=== PATIENT | male | born 1945 | race Caucasian/White ===

== ENCOUNTER 2017-12-13 10:20 | Day surgery (SDC) | payer MEDICARE ==
[2017-12-13] MEDS ORDERED: Depo-Medrol 40 MG/ML IM ONE (10:21)
[2017-12-13] MEDS ORDERED: DIPRIVAN 200 MG/20 ML IV ONE (10:21)
[2017-12-13] MEDS ORDERED: Xylocaine-Mpf 2% 5 Ml Vial IJ ONE (10:21)
[2017-12-13] MEDS ORDERED: Lactated Ringers 1,000 ML IV ONE (11:52)
--- NOTE | 2017-12-13 12:14 | XRAY ---
Indication: Bilateral L4-S1 MBB. Intraoperative fluoroscopy was provided for 10 seconds. 2 digital spot images submitted for interpretation demonstrates posterior spinal needle tips projecting over the expected course of the left and right L4-S1 nerve roots. Correlate with intraoperative findings/report.
--- NOTE | 2017-12-13 12:17 | XRAY ---
10 seconds fluoroscopy time in surgery for bilateral L4-S1 MBB.
== END 2017-12-13 11:35 | disposition home or self-care (01) ==
LOC: SDC-PAIN 10:20
PROVIDERS: ATTEND Psychiatry & Neurology Pain Medicine
DX: M47.816 Spondylosis without myelopathy or radiculopathy, lumbar region (principal)
CPT/HCPCS: 64493; 64494; 72020; 77003; 99100; J1030; J2704

== ENCOUNTER 2018-01-24 09:26 | Day surgery (SDC) | payer MEDICARE ==
[2018-01-24] MEDS ORDERED: Marcaine 0.5% SDV 10 ML IJ ONE ×2 (09:27)
[2018-01-24] MEDS ORDERED: Depo-Medrol 40 MG/ML IM ONE ×2 (09:27)
[2018-01-24] MEDS ORDERED: DIPRIVAN 200 MG/20 ML IV ONE (09:27)
--- NOTE | 2018-01-24 12:31 | XRAY ---
7 seconds of fluoroscopy was used in surgery for bilateral L4-S1 MBB.
--- NOTE | 2018-01-24 12:41 | XRAY ---
Indication: Bilateral L4-S1 MBB. Intraoperative fluoroscopy was provided for 7 seconds. Single digital spot image submitted for interpretation demonstrates posterior spinal needle tips projecting over the expected course of the left and right L4-S1 nerve roots. Correlate with intraoperative findings/report.
[2018-01-24] MEDS ORDERED: Lactated Ringers 1,000 ML IV ONE (14:46)
== END 2018-01-24 12:20 | disposition home or self-care (01) ==
LOC: SDC-PAIN 09:26
PROVIDERS: ATTEND Psychiatry & Neurology Pain Medicine
DX: M47.819 Spondylosis without myelopathy or radiculopathy, site unspecified (principal); Z79.899 Other long term (current) drug therapy
CPT/HCPCS: 64493; 64494; 72020; 77003; 99100; J1030; J2704

== ENCOUNTER 2018-03-14 09:30 | Day surgery (SDC) | payer MEDICARE ==
[2018-03-14] MEDS ORDERED: Xylocaine 1% Vial 30 ML PF IJ ONE (09:31)
[2018-03-14] MEDS ORDERED: Marcaine 0.5% SDV 10 ML IJ ONE (09:31)
[2018-03-14] MEDS ORDERED: DIPRIVAN 200 MG/20 ML IV ONE (09:31)
[2018-03-14] MEDS ORDERED: Depo-Medrol 40 MG/ML IM ONE (09:31)
[2018-03-14] MEDS ORDERED: ROBINUL IV ONE (09:31)
--- NOTE | 2018-03-14 14:36 | XRAY ---
Indication: Right L4-S1 RFA. Intraoperative fluoroscopy was provided for 38 seconds. 2 digital spot images submitted for interpretation demonstrates posterior spinal needle tips projecting over the expected course of the right L4-S1 nerve roots. Correlate with intraoperative findings/report.
--- NOTE | 2018-03-14 14:55 | XRAY ---
38 seconds fluoroscopy time in surgery for right L4-S1 RFA.
[2018-03-14] MEDS ORDERED: Lactated Ringers 2,000 ML IV ONE (14:59)
== END 2018-03-14 14:30 | disposition home or self-care (01) ==
LOC: SDC-PAIN 09:30
PROVIDERS: ATTEND Psychiatry & Neurology Pain Medicine
DX: M47.816 Spondylosis without myelopathy or radiculopathy, lumbar region (principal)
CPT/HCPCS: 64635; 64636; 72020; 77002; 99100; J1030; J2001; J2704

== ENCOUNTER 2018-04-11 08:33 | Day surgery (SDC) | payer MEDICARE ==
[2018-04-11] MEDS ORDERED: DIPRIVAN 200 MG/20 ML IV ONE (08:34)
[2018-04-11] MEDS ORDERED: Ketamine HCl 50 MG/ML IJ ONE (08:34)
[2018-04-11] MEDS ORDERED: Xylocaine 1% Vial 30 ML PF IJ ONE (08:34)
[2018-04-11] MEDS ORDERED: Depo-Medrol 40 MG/ML IM ONE (08:34)
[2018-04-11] MEDS ORDERED: Marcaine 0.5% SDV 10 ML IJ ONE (08:34)
[2018-04-11] MEDS ORDERED: Lactated Ringers 1,000 ML IV ONE (09:17)
--- NOTE | 2018-04-11 12:13 | XRAY ---
Indication: Left L4-S1 RFA. Intraoperative fluoroscopy was provided for 32 seconds. 3 digital spot images submitted for interpretation demonstrates posterior spinal needle tips projecting over the expected course of the left L4-S1 nerve roots. Correlate with intraoperative findings/report.
--- NOTE | 2018-04-11 12:16 | XRAY ---
32 seconds fluoroscopy time in surgery for L4-S1 RFA.
== END 2018-04-11 11:13 | disposition home or self-care (01) ==
LOC: SDC-PAIN 08:33
PROVIDERS: ATTEND Psychiatry & Neurology Pain Medicine
DX: M47.816 Spondylosis without myelopathy or radiculopathy, lumbar region (principal); Z79.899 Other long term (current) drug therapy
CPT/HCPCS: 64635; 64636; 72020; 77002; 99100; J1030; J2001; J2704

== ENCOUNTER 2018-12-26 14:14 | Day surgery (SDC) | payer MEDICARE ==
[2018-12-26] MEDS ORDERED: Xylocaine-Mpf 2% 5 Ml Vial IJ ONE (14:15)
[2018-12-26] MEDS ORDERED: Decadron 4 MG INJ IV ONE (14:15)
[2018-12-26] MEDS ORDERED: DIPRIVAN 200 MG/20 ML IV ONE (16:21)
[2018-12-26] MEDS ORDERED: Ketamine HCl 50 MG/ML ONE (16:21)
--- NOTE | 2018-12-26 17:05 | XRAY ---
Indication: Right C3-C6 MBB. Intraoperative fluoroscopy was provided for 39 seconds. 4 digital spot images submitted for interpretation demonstrates posterior needle tips projecting over the expected course of the right C3-C6 nerve roots. Correlate with intraoperative findings/report.
--- NOTE | 2018-12-26 17:05 | XRAY ---
39 seconds fluoroscopy time in surgery for right C3-C6 MBB.
[2018-12-26] MEDS ORDERED: Lactated Ringers 1,000 ML IV ONE (18:23)
== END 2018-12-26 17:02 | disposition home or self-care (01) ==
LOC: SDC-PAIN 14:14
PROVIDERS: ATTEND Psychiatry & Neurology Pain Medicine
DX: M47.813 Spondylosis without myelopathy or radiculopathy, cervicothoracic region (principal); M06.9 Rheumatoid arthritis, unspecified; Z79.899 Other long term (current) drug therapy; Z79.01 Long term (current) use of anticoagulants
CPT/HCPCS: 64490; 64491; 64492; 72020; 77002; J1100; J2704

== ENCOUNTER 2019-01-16 09:48 | Day surgery (SDC) | payer MEDICARE ==
[2019-01-16] MEDS ORDERED: Xylocaine-Mpf 2% 5 Ml Vial IJ ONE (09:49)
[2019-01-16] MEDS ORDERED: Decadron 4 MG INJ IV ONE (09:49)
[2019-01-16] MEDS ORDERED: ROBINUL IV ONE (09:49)
[2019-01-16] MEDS ORDERED: DIPRIVAN 200 MG/20 ML IV ONE (11:14)
[2019-01-16] MEDS ORDERED: Ketamine HCl 50 MG/ML ONE (11:14)
--- NOTE | 2019-01-16 12:21 | XRAY ---
27 seconds fluoroscopy time in surgery for left C3-C6 MBB.
--- NOTE | 2019-01-16 12:21 | XRAY ---
Indication: Left C3-C6 MBB. Intraoperative fluoroscopy was provided for 27 seconds. 3 digital spot images submitted for interpretation demonstrates posterior needle tips projecting over the expected course of the left C3-C6 nerve roots. Correlate with intraoperative findings/report.
[2019-01-16] MEDS ORDERED: Lactated Ringers 1,000 ML IV ONE (14:30)
== END 2019-01-16 12:08 | disposition home or self-care (01) ==
LOC: SDC-PAIN 09:48
PROVIDERS: ATTEND Psychiatry & Neurology Pain Medicine
DX: M47.812 Spondylosis without myelopathy or radiculopathy, cervical region (principal); M06.9 Rheumatoid arthritis, unspecified; Z79.899 Other long term (current) drug therapy; Z79.01 Long term (current) use of anticoagulants
CPT/HCPCS: 64490; 64491; 64492; 72020; 77002; J1100; J2704

== ENCOUNTER 2019-02-20 09:30 | Day surgery (SDC) | payer MEDICARE ==
[2019-02-20] MEDS ORDERED: Marcaine 0.5% SDV 10 ML IJ ONE (09:31)
[2019-02-20] MEDS ORDERED: Depo-Medrol 40 MG/ML IM ONE (09:31)
[2019-02-20] MEDS ORDERED: DIPRIVAN 200 MG/20 ML IV ONE (11:54)
[2019-02-20] MEDS ORDERED: Ketamine HCl 50 MG/ML ONE (11:55)
--- NOTE | 2019-02-20 12:59 | XRAY ---
Indication: Bilateral SI joint injection. Intraoperative fluoroscopy was provided for 10 seconds. 4 digital spot images submitted for interpretation demonstrates posterior needle tip projecting over the inferior left and right SI joints. Correlate with intraoperative findings/report.
--- NOTE | 2019-02-20 13:12 | XRAY ---
10 seconds of fluoroscopy was used in surgery for bilateral SI joint injection.
[2019-02-20] MEDS ORDERED: Lactated Ringers 1,000 ML IV ONE (15:55)
== END 2019-02-20 12:25 | disposition home or self-care (01) ==
LOC: SDC-PAIN 09:30
PROVIDERS: ATTEND Psychiatry & Neurology Pain Medicine
DX: M46.1 Sacroiliitis, not elsewhere classified (principal); M06.9 Rheumatoid arthritis, unspecified; Z79.899 Other long term (current) drug therapy; Z79.01 Long term (current) use of anticoagulants
CPT/HCPCS: 72202; 77002; G0260; 27096; 99100; J1030; J2704

== ENCOUNTER 2019-12-11 13:20 | Day surgery (SDC) | payer MEDICARE ==
[~2019-12-11 13:20] MED LIST: DIPRIVAN 200 MG/20 ML IV ONE; Ketamine HCl 50 MG/ML ONE
[2019-12-11] MEDS ORDERED: Depo-Medrol 40 MG/ML IM ONE (13:21)
[2019-12-11] MEDS ORDERED: BUPIVACAINE 0.5% VIAL IJ ONE (13:21)
--- NOTE | 2019-12-11 16:25 | XRAY ---
Indication: Bilateral SI joint injection. Intraoperative fluoroscopy was provided for 10 seconds. 4 digital spot images submitted for interpretation demonstrates posterior needle tip projecting over the inferior left and right SI joint. Correlate with intraoperative findings/report.
--- NOTE | 2019-12-11 16:29 | XRAY ---
10 seconds fluoroscopy time in surgery for bilateral SI joint injections.
[2019-12-11] MEDS ORDERED: Lactated Ringers 1,000 ML IV ONE (16:51)
== END 2019-12-11 16:05 | disposition home or self-care (01) ==
LOC: SDC-PAIN 13:20
PROVIDERS: ATTEND Psychiatry & Neurology Pain Medicine
DX: M46.1 Sacroiliitis, not elsewhere classified (principal); Z79.899 Other long term (current) drug therapy; M06.9 Rheumatoid arthritis, unspecified
CPT/HCPCS: 72202; 77002; G0260; 27096; 99100; J1030; J2704

== ENCOUNTER 2020-12-02 13:06 | Day surgery (SDC) | payer MEDICARE ==
[2020-12-02] MEDS ORDERED: Depo-Medrol 40 MG/ML IM ONE (13:07)
[2020-12-02] MEDS ORDERED: Xylocaine 1% Vial 30 ML PF IJ ONE (13:07)
[2020-12-02] MEDS ORDERED: BUPIVACAINE 0.5% VIAL IJ ONE (13:07)
[2020-12-02] MEDS ORDERED: DIPRIVAN 200 MG/20 ML IV ONE ×2 (14:37→14:48)
--- NOTE | 2020-12-02 15:24 | XRAY ---
Indication: Right L4-S1 RFA. Intraoperative fluoroscopy was provided for 29 seconds. 3 digital spot image submitted for interpretation demonstrates posterior needle tips projecting over the expected right L4-S1 nerve roots. Correlate with intraoperative findings/report.
--- NOTE | 2020-12-02 16:27 | XRAY ---
29 seconds of fluoroscopy was used in surgery for a right L4-S1 RFA.
[2020-12-02] MEDS ORDERED: Lactated Ringers 1,000 ML IV ONE (16:31)
== END 2020-12-02 15:10 | disposition home or self-care (01) ==
LOC: SDC-PAIN 13:06
PROVIDERS: ATTEND Psychiatry & Neurology Pain Medicine
DX: M47.816 Spondylosis without myelopathy or radiculopathy, lumbar region (principal); Z79.899 Other long term (current) drug therapy
CPT/HCPCS: 64635; 64636; 72100; 77002; 99100; J1030; J2001; J2704

== ENCOUNTER 2020-12-16 11:55 | Day surgery (SDC) | payer MEDICARE ==
[2020-12-16] MEDS ORDERED: Xylocaine 1% Vial 30 ML PF IJ ONE (11:56)
[2020-12-16] MEDS ORDERED: BUPIVACAINE 0.5% VIAL IJ ONE (11:56)
[2020-12-16] MEDS ORDERED: Depo-Medrol 40 MG/ML IM ONE (11:56)
[2020-12-16] MEDS ORDERED: DIPRIVAN 200 MG/20 ML IV ONE (14:09)
[2020-12-16] MEDS ORDERED: Lactated Ringers 1,000 ML IV ONE (14:27)
--- NOTE | 2020-12-16 15:00 | XRAY ---
Indication: Left L4-S1 RFA. Intraoperative fluoroscopy provided for 16 seconds. 3 digital spot images submitted for interpretation demonstrates posterior needle tips projecting over the expected left L4-S1 nerve roots. Correlate with intraoperative findings/report.
--- NOTE | 2020-12-16 15:18 | XRAY ---
16 seconds fluoroscopy time in surgery for left L4-S1 RFA.
== END 2020-12-16 14:40 | disposition home or self-care (01) ==
LOC: SDC-PAIN 11:55
PROVIDERS: ATTEND Psychiatry & Neurology Pain Medicine
DX: M47.816 Spondylosis without myelopathy or radiculopathy, lumbar region (principal); Z79.899 Other long term (current) drug therapy
CPT/HCPCS: 64635; 64636; 72100; 77002; 99100; J1030; J2001; J2704

== ENCOUNTER 2021-01-20 09:59 | Day surgery (SDC) | payer MEDICARE ==
[2021-01-20] MEDS ORDERED: Depo-Medrol 40 MG/ML IM ONE (10:00)
[2021-01-20] MEDS ORDERED: BUPIVACAINE 0.5% VIAL IJ ONE (10:00)
[2021-01-20] MEDS ORDERED: DIPRIVAN 200 MG/20 ML IV ONE (11:57)
[2021-01-20] MEDS ORDERED: Lactated Ringers 1,000 ML IV ONE (12:19)
--- NOTE | 2021-01-20 12:39 | XRAY ---
Indication: Bilateral SI joint injection. Intraoperative fluoroscopy provided for 16 seconds. 4 digital spot image submitted for interpretation demonstrate posterior needle tip projecting over the inferior left and right SI joint. Correlate with intraoperative findings/report.
--- NOTE | 2021-01-20 14:06 | XRAY ---
16 seconds of fluoroscopy was used in surgery for a bilateral SI joint injection.
== END 2021-01-20 12:20 | disposition home or self-care (01) ==
LOC: SDC-PAIN 09:59
PROVIDERS: ATTEND Psychiatry & Neurology Pain Medicine
DX: M46.1 Sacroiliitis, not elsewhere classified (principal); Z79.899 Other long term (current) drug therapy
CPT/HCPCS: 27096; 72202; 77002; G0260; 99100; J1030; J2704; Q9966

== ENCOUNTER 2023-06-29 08:48 | Day surgery (SDC) | payer MEDICARE ==
--- NOTE | 2023-06-28 09:55 | HP ---
DATE OF SURGERY: 06/29/2023 HISTORY OF PRESENT ILLNESS: The patient is an 78-year-old male presents with complaints of right inguinal hernia. He is actually stating he has hernia on both sides with some bulging and discomfort for a couple months. He does state that he had left-sided repair x3 with mesh. There has been no history of repair on the right side. PAST MEDICAL HISTORY: Coronary artery disease. Heart attack. Atrial fibrillation. Anxiety. Hypertension. Gastroesophageal reflux disease. Thyroid. Hyperlipidemia. PAST SURGICAL HISTORY: Left inguinal hernia repair. Coronary artery bypass graft. ALLERGIES: CODEINE. MEDICATIONS: Sildenafil, omeprazole, levothyroxine, Plavix, Coreg, carbidopa-levodopa, atorvastatin, aspirin. FAMILY HISTORY: Breast cancer. Stomach cancer. SOCIAL HISTORY: Current smoker. REVIEW OF SYSTEMS: CONSTITUTIONAL: Denies fever or chills. CHEST: Denies shortness of breath. CVS: Denies chest pain. ABDOMEN: Reports inguinal hernia pain. PHYSICAL EXAMINATION: GENERAL: No acute distress. CHEST: Nonlabored. No shortness of breath. CVS: Regular rate and rhythm. ABDOMEN: Soft with moderate right inguinal hernia. No inguinal hernia on the left side. IMPRESSION: Symptomatic right inguinal hernia. PLAN: Right inguinal repair with mesh with Dr. Junior Courtney. As dictated by Brynn Burch NP.
[~2023-06-29 08:48] MED LIST changes: -DIPRIVAN 200 MG/20 ML IV ONE; -Ketamine HCl 50 MG/ML ONE; +Sensorcaine 0.25% 10 ML ONE
[2023-06-29] MEDS ORDERED: Lactated Ringers 1,000 ML IV ONE (09:04)
[2023-06-29] MEDS: Lactated Ringers 1,000 ML IV SCH (09:08)
[2023-06-29] MEDS: CEFAZOLIN 2 GM-D5W BAG** 2 GM/50 ML ML IV SCH (09:08)
[2023-06-29 09:29] LABS: Absolute Neutrophil Ct (ANC) 3.66 x10^3/uL (1.4-6.9); BASOPHIL % 0.6 % (0.0-0.4); Basophil (Absolute #) 0.05 x10^3/uL (0-0.4); Eosinophil % 10.4 % (0.00-5.0); Eosinophil (Absolute #) 0.88 x10^3/uL (0-0.5); Hemoglobin 14.5 g/dL (12.5-18.0); IMMATURE GRAN # 0.03 x10^3u/L (0.00-0.03); IMMATURE GRAN % 0.4 % (0.00-0.4); Lymphocyte (Absolute #) 3.21 x10^3/uL (1.0-4.6); Lymphocytes % 37.9 % (24.0-44.0); Mean Cell Volume 93.9 fL (78-100); Mean Corpuscular Hemoglobin 31.7 pg (26-32); Mean Corpuscular Hgb Concent. 33.7 g/dL (32-36); Mean Platelet Volume 8.8 fL (7.5-11.0); Monocyte (Absolute #) 0.63 x10^3/uL (0.0-1.3); Monocytes % 7.4 % (0.0-12.0); Neutrophil % 43.3 % (36.0-66.0); Platelet Count 234 x10^3/uL (150-450); Red Blood Count 4.58 x10^6/uL (4.1-5.6); White Blood Count 8.5 x10^3/uL (4.0-10.5)
[2023-06-29 09:45] LABS: ANION GAP 8.4 MEQ/L (5-15); Calcium 8.9 mg/dL (8.4-10.2); Creatinine 1 0.89 mg/dL (0.66-1.25); EST GLOMERULAR FILTRATION RATE 86.6 ML/MIN; Potassium 3.8 mmol/L (3.5-5.1)
[2023-06-29] MEDS ORDERED: SUBLIMAZE 100 MCG/2 ML ONE (10:51)
[2023-06-29] MEDS ORDERED: Versed 2 MG/2 ML Injection ONE (10:51)
[2023-06-29] MEDS ORDERED: DIPRIVAN 200 MG/20 ML IV ONE (10:59)
[2023-06-29] MEDS ORDERED: Ephedrine Sulfate 50 MG/ML ONE (11:08)
[2023-06-29 12:55] VITALS: PULSE 53
[2023-06-29 13:11] VITALS: BP 131/74; RESP 18; O2SAT 98
[2023-06-29 14:45] VITALS: TEMP 97.8
--- NOTE | 2023-06-30 08:28 | OP ---
SURGERY DATE/TIME: 06/29/2023 1049 PREOPERATIVE DIAGNOSIS: Right inguinal hernia. POSTOPERATIVE DIAGNOSIS: Right inguinal hernia indirect and direct. PROCEDURE: Right inguinal herniorrhaphy primary repair. SURGEON: Junior Courtney M.D. COMPUTER METHODS ANALYST: Isiah Alvarado, Medical Student III. ANESTHESIA: General. COMPLICATIONS: None. CONDITION: Stable. DESCRIPTION OF PROCEDURE: The patient taken to surgery. Very thin. Kidney rest bumped up slightly. Incision marked just above the ileoinguinal ligament area very prominent hernia was reduced at this time under anesthetic. The patient had been marked preoperatively. Right side curvilinear incision. External oblique opened. There was a lot of scarring at the internal ring. There was an indirect sac here and this was taken out with scar tissue. There was a direct hernia also this was tucked in. The indirect sac was highly ligated. It was 2 inches. The direct area tucked in. It was repaired with Liang's ligament suture repair proceeding out. The internal ring was one clamp tight. The first three sutures were at the lower level of Liang's therefore this obliterated the femoral area. The floor looked satisfactory. The cord was satisfactory. The testicles pulled back down into the scrotum. There was a small amount of external closure with 2-0 Vicryl. Nieves fascia closed with 3-0 Vicryl. Skin closed with 4-0 Vicryl. Steri-Strips applied. Sterile dressing applied. The patient tolerated the procedure satisfactorily.
== END 2023-06-29 14:46 | disposition home or self-care (01) ==
LOC: SDC 08:48
PROVIDERS: ATTEND Surgery
DX: K40.90 Unilateral inguinal hernia, without obstruction or gangrene, not specified as recurrent (principal); I10 Essential (primary) hypertension; Z79.899 Other long term (current) drug therapy; Z80.3 Family history of malignant neoplasm of breast; Z80.0 Family history of malignant neoplasm of digestive organs
CPT/HCPCS: 36415; 64486; 76937; 80048; 85025; 93005; J0690; J2250; J2704; J3010

== ENCOUNTER 2024-02-01 06:24 | Day surgery (SDC) | payer MEDICARE ==
--- NOTE | 2024-01-30 11:28 | HP ---
HISTORY OF PRESENT ILLNESS: The patient is an 78-year-old male who presents with complaint of a recurrent right inguinal hernia. He had primary repair in 06/2023. He got COVID. He had a really bad coughing spell. He sees a bulge again. PAST MEDICAL HISTORY: Hypertension, hyperlipidemia, coronary artery disease, GERD, thyroid. HOME MEDICATIONS: Aspirin, atorvastatin, carbidopa, carvedilol, Plavix, levothyroxine, sildenafil, omeprazole. ALLERGIES: Codeine. PAST SURGICAL HISTORY: Carotid endarterectomy, stent x3, shoulder surgery, inguinal hernia repair left and right. SOCIAL HISTORY: Current smoker. Occasional alcohol. FAMILY HISTORY: Bone cancer. REVIEW OF SYSTEMS: CONSTITUTIONAL: Denies fever or chills. CHEST: Denies shortness of breath. CARDIOVASCULAR: Denies chest pain. ABDOMEN: Denies abdominal pain. Reports right inguinal hernia pain. PHYSICAL EXAMINATION: GENERAL: No acute distress. CARDIOVASCULAR: Regular rate and rhythm. RESPIRATORY: Nonlabored. No shortness of breath. ABDOMEN: Soft. He has a moderate right inguinal hernia that is soft and reduces. ASSESSMENT: Recurrent right inguinal hernia. PLAN: Right inguinal hernia repair with Dr. Junior Courtney. This report was dictated for Dr. Courtney by Brynn Burch NP.
[2024-02-01] MEDS ORDERED: CEFAZOLIN 2 GM/100 ML NaCl 2 GM/100 ML IVPB IV ONE (07:09)
[2024-02-01] MEDS ORDERED: Lactated Ringers 1,000 ML IV ONE (07:09)
[2024-02-01 07:35] VITALS: RESP 16
[2024-02-01 07:49] LABS: ANION GAP 7.3 MEQ/L (5-15); Calcium 8.9 mg/dL (8.4-10.2); Creatinine 1 0.91 mg/dL (0.66-1.25); EST GLOMERULAR FILTRATION RATE 85.2 ML/MIN; Potassium 3.9 mmol/L (3.5-5.1)
[2024-02-01] MEDS ORDERED: Sensorcaine 0.25% 10 ML ONE (08:56)
[2024-02-01] MEDS: Lactated Ringers 1,000 ML IV SCH (09:07)
[2024-02-01] MEDS: CEFAZOLIN 2 GM/100 ML NaCl 2 GM/100 ML IVPB IV SCH (09:08)
[2024-02-01] MEDS ORDERED: ROCURONIUM BROMIDE IV ONE (09:41)
[2024-02-01] MEDS ORDERED: Zofran 4 MG/2 ML VIAL ONE (09:41)
[2024-02-01] MEDS ORDERED: Decadron 4 MG INJ ONE (09:41)
[2024-02-01] MEDS ORDERED: DIPRIVAN 200 MG/20 ML IV ONE (09:41)
[2024-02-01] MEDS ORDERED: SUBLIMAZE 100 MCG/2 ML ONE ×2 (09:42→11:41)
[2024-02-01] MEDS ORDERED: ROBINUL ONE (10:44)
[2024-02-01] MEDS ORDERED: BRIDION 200MG/2ML IV ONE (10:54)
[2024-02-01 12:47] VITALS: BP 106/64; PULSE 50; TEMP 98.1; O2SAT 97
--- NOTE | 2024-02-02 18:04 | OP ---
SURGERY DATE/TIME: 02/01/2024 7569-0019 PREOPERATIVE DIAGNOSIS: Open, recurrent right inguinal hernia with mesh. POSTOPERATIVE DIAGNOSIS: Open, recurrent right inguinal hernia with mesh. PROCEDURE: Right inguinal hernia repair. SURGEON: Junior Courtney MD ANESTHESIA: General. DESCRIPTION OF PROCEDURE AND FINDINGS: Patient was taken to surgery, general anesthetic, routine prep and drape. It is recurrent. He has previous incision here. He has a bulge that is coming straight out. There was quite a bit of scar tissue but yet the tissue in the area was weak. With care and patience, it was dissected. Cord was skeletonized at the internal ring. A piece of mesh buttressed the internal ring 360 degrees, was secured with sutures of 0 Prolene. Satisfactory approximation repair. The floor itself was buttressed again with running down the back of 0 Prolene. The cord laid back. External oblique closed with 3-0 Vicryl. Nieves fascia with 3-0 Vicryl. Skin closed with 4-0 Vicryl. Steri-Strips applied. Sterile dressing applied. The patient tolerated the procedure satisfactorily. IMPRESSION: The patient has had an open recurrent inguinal hernia repair. His tissue was fairly flimsy and mesh was used.
== END 2024-02-01 13:00 | disposition home or self-care (01) ==
LOC: SDC 06:24
PROVIDERS: ATTEND Surgery
DX: K40.91 Unilateral inguinal hernia, without obstruction or gangrene, recurrent (principal); I10 Essential (primary) hypertension
CPT/HCPCS: 36415; 80048; 93005; J0690; J1100; J2405; J2704; J3010

== ENCOUNTER 2024-03-18 12:33 | Emergency (ER) | payer MEDICARE ==
--- NOTE | 2024-03-18 12:43 | ERPHSYRPT ---
- History of Present Illness Time Seen by Provider: 03/18/24 12:35 Historian: patient, EMS, old records Exam Limitations: no limitations Physician History: This is an 78-year-old white male patient who presents to the emergency department by the cultural centre manager service secondary to chest pain with SVT in the ambulance and was cardioverted with adenosine. The heart rate was in the 160s and he had low blood pressure. The patient states the chest pain came on at approximately 11 AM and was sharp it was substernal and central without radiation. Patient has a significant cardiac history having had 2 or 3-week cardiac stents placed in the past per his report. He is on Plavix. His metal riveting machine operator is Dr. Guzman. Patient continues to smoke cigarettes daily and he has at least a [id number] smoking history. Patient has a history of hyperlipidemia, hypothyroidism, hypertension and gastroesophageal reflux disease. Patient took 4 nitroglycerin without relief of his pain. Timing/Duration: today Activities at Onset: other Quality: sharpness, stabbing Location: substernal, central Chest Pain Radiation: no radiation Severity of Pain-Max: moderate Severity of Pain-Current: moderate Modifying Factors: Improves With: nothing Associated Symptoms: denies symptoms Prior Chest Pain/Cardiac Workup: cardiac cath, heart attack Nitro Today/Relief: 0.4 mg x 4, provided at home, no relief Aspirin Treatment Today: 81 mg x 4, provided by ED Allergies/Adverse Reactions: codeine Allergy (Verified 03/18/24 12:37) Home Medications: Aspirin EC 81 mg [Ecotrin 81 mg] 81 mg PO DAILY 06/26/23 [History] Atorvastatin Calcium [Lipitor] 20 mg PO DAILY 06/26/23 [History] Carbidopa/Levodopa [Carbidopa-Levo 25-100 mg Odt] 1 each PO DAILY 06/26/23 [History] Carvedilol 3.125 mg [Coreg 3.125 MG] 3.125 mg PO DAILY 06/26/23 [History] Clopidogrel Bisulfate [Clopidogrel] 75 mg PO DAILY 06/26/23 [History] Levothyroxine Sodium 75 Mcg [Synthroid 75 Mcg] 75 mcg PO DAILY 06/26/23 [History] Omeprazole 40 mg PO DAILY 06/26/23 [History] Sildenafil Citrate 100 mg PO UD 06/26/23 [History] Travel Risk - International Travel Have you traveled outside of the country in past 3 weeks: No - Emerging Infectious Disease Are you exhibiting symptoms associated with any current EIDs: No - Review of Systems Constitutional: No Symptoms Eyes: No Symptoms Ears, Nose, & Throat: No Symptoms Respiratory: No Symptoms Cardiac: Chest Pain Abdominal/Gastrointestinal: No Symptoms Genitourinary Symptoms: No Symptoms Musculoskeletal: No Symptoms Skin: No Symptoms Neurological: No Symptoms Psychological: No Symptoms Endocrine: No Symptoms Hematologic/Lymphatic: No Symptoms Immunological/Allergic: No Symptoms All Other Systems: Reviewed and Negative - Past Medical History Pertinent Past Medical History: Yes Neurological History: No Pertinent History ENT History: No Pertinent History Cardiac History: Arrhythmia, Hypertension, Myocardial Infarction (NH) Respiratory History: No Pertinent History Endocrine Medical History: Hypothyroidism Musculoskeletal History: Arthritis GI Medical History: GERD History: No Pertinent History Psycho-Social History: No Pertinent History, Anxiety Male Reproductive Disorders: No Pertinent History - Past Surgical History Past Surgical History: Yes Neuro Surgical History: No Pertinent History Cardiac: Cardiac Catheterization Respiratory: No Pertinent History Gastrointestinal: Hernia Repair Genitourinary: No Pertinent History Musculoskeletal: No Pertinent History Male Surgical History: No Pertinent History Other Surgical History: Hernia repair x 4 - Social History Smoking Status: Current every day smoker How long have you smoked: 70 years Exposure to second hand smoke: Yes Drug Use: none - Physical Exam General Appearance: no apparent distress, alert, anxiety, thin Eye Exam: PERRL/EOMI, eyes nml inspection Ears, Nose, Throat Exam: normal ENT inspection, moist mucous membranes Neck Exam: normal inspection, non-tender, supple, full range of motion Respiratory Exam: normal breath sounds, chest tenderness, lungs clear, airway intact, No respiratory distress Cardiovascular Exam: regular rate/rhythm, normal heart sounds, normal peripheral pulses, tachycardia Gastrointestinal/Abdomen Exam: soft, normal bowel sounds, No tenderness Rectal Exam: not done Back Exam: normal inspection, normal range of motion, No CVA tenderness, No vertebral tenderness Extremity Exam: normal inspection, normal range of motion, pelvis stable Neurologic Exam: alert, oriented x 3, cooperative, paper twister tender II-XII nml as tested, sensation nml Skin Exam: normal color, warm, dry Lymphatic Exam: No adenopathy SpO2 Interpretation: normal O2 Delivery: Room Air - Course Nursing assessment & vital signs reviewed: Yes EKG Interpreted by Me: RATE (114), Sinus Tach, prolonged QT interval, ST Elev (V2 V3 V4), Other (QTc 507) Ordered Tests: Active Orders 24 hr Category Date Time Status Research Test Engine Evaluator STAT Care 03/18/24 12:47 Active EKG-ER Only STAT Care 03/18/24 12:46 Active IV Insertion STAT Care 03/18/24 12:46 Active Pulse Oximetry (ED) STAT Care 03/18/24 12:46 Active CBC W DIFF Stat Lab 03/18/24 12:46 Ordered CMP Stat Lab 03/18/24 12:46 Ordered NT PRO BNPII Stat Lab 03/18/24 Ordered PROTIME WITH INR Stat Lab 03/18/24 12:46 Ordered TROPONIN Q4H Lab 03/18/24 13:00 Ordered TROPONIN Q4H Lab 03/18/24 17:00 Ordered TROPONIN Q4H Lab 03/18/24 21:00 Ordered Medication Summary Discontinued Medications Generic Name Dose Route Start Last Admin Trade Name Freq PRN Reason Stop Dose Admin Aspirin 324 mg 03/18/24 12:50 Aspirin 81 Mg Tab.Chew PO 03/18/24 12:51 STAT ONE Heparin Sodium (Beef Lung) 5,000 unit 03/18/24 12:47 03/18/24 12:50 Heparin 5000 Units/0.5 Ml 5,000 Unit/0.5 Ml Syr IV 03/18/24 12:48 5,000 unit STAT ONE Administration - Progress Progress: unchanged Air Movement: good Progress Note: 03/18/24 12:58 Medical decision making and the assignment of high complexity to this patient's medical issue today is based on review of the patient's past medical history, review the patient's medication list, reviewed patient drug allergy list, history present illness and physical findings on examination. The workup in this patient includes stat twelve-lead EKG, CBC, CMP, troponin level, magnesium level. We also provided the patient with 4 baby aspirin and 5000 units of intravenous heparin. I interpreted the twelve-lead EKG performed on 03/18/2024. There is ST elevation in leads V2, V3, V4. We contacted [facility] transfer center. This patient is auto accepted. The emergency department physician excepting this patient is Dr. Andrade. The twelve-lead EKG was faxed to the emergency department. 03/18/24 13:01 Blood Culture(s) Obtained: No Antibiotics given: No Counseled pt/family regarding: lab results, diagnosis, need for follow-up Medical Desision Making - Independent Historian Additional History obtained from: Green Building Materials Designer/EMT - Diagnostic Testing Diagnostic test were ordered, analyzed, and reviewed by me: Yes - Risk of complications The pt has a high risk of morbidity or mortality based on: Decision regarding hospitilization or escalation of hosp level of care - Departure Departure Disposition: Transfer Clinical Impression: STEMI (ST elevation myocardial infarction) Condition: Serious Critical Care Time: Yes Critical Care Time(excluding separately billable procedures): Critical 30-74 mins Referrals: SAVANAH BALL NP [Primary Care Provider] - Follow up/PCP as directed
[2024-03-18] MEDS: HEPARIN 5000 UNITS/0.5 ML (HIGH RISK MED) IV ONE (12:50)
[2024-03-18] MEDS ORDERED: HEPARIN 5000 UNITS/0.5 ML (HIGH RISK MED) ONE (12:50)
[2024-03-18] MEDS ORDERED: BABY ASPIRIN 81 MG CHEW ONE (12:53)
[2024-03-18] MEDS: BABY ASPIRIN 81 MG CHEW PO ONE (12:53)
[2024-03-18 12:54] VITALS: BP 83/55; TEMP 95.6; O2SAT 98
[2024-03-18 12:57] VITALS: PULSE 65; RESP 17
== END 2024-03-18 13:06 | disposition short-term general hospital (02) ==
LOC: ED 12:33
DX: I21.3 ST elevation (STEMI) myocardial infarction of unspecified site (principal); R07.9 Chest pain, unspecified; E78.5 Hyperlipidemia, unspecified; I10 Essential (primary) hypertension; Z79.02 Long term (current) use of antithrombotics/antiplatelets; Z79.899 Other long term (current) drug therapy; Z72.0 Tobacco use
CPT/HCPCS: 93005; 93041; 94760; 96374; 99284; 99291; J1644; A9270-GY